=== PATIENT | female | born 1985 | race Caucasian/White ===

== ENCOUNTER 2018-08-06 03:34 | Emergency (ER) | payer OTHER ==
[~2018-08-06] VITALS: Ht 170.2 cm; Wt 56.0 kg
[2018-08-06] MEDS ORDERED: ketorolac trometh. 30mg/ml inj. IV ONE (04:30)
[2018-08-06] MEDS ORDERED: normal saline 1000ml 1,000 ML IV ONE (04:30)
[2018-08-06] MEDS ORDERED: ondansetron/PF 4mg/2ml inj IV ONE ×2 (04:30→13:45)
[2018-08-06 05:03] LABS: ALANINE AMINOTRANSFERASE 27 U/L (12-78); ALBUMIN 3.5 G/DL (3.4-5.0); ALKALINE PHOSPHATASE 40 IU/L (46-116); ANION GAP 7 (8-16); ASPARTATE AMINO TRANSFERASE 22 U/L (10-37); BILIRUBIN,TOTAL 0.3 MG/DL (0.1-1.0); BLOOD UREA NITROGEN 11 MG/DL (7-18); BUN/CREATININE RATIO 11.8 (6.6-38.0); CALCIUM 8.4 MG/DL (8.5-10.1); CHLORIDE 104 MMOL/L (99-107); CREATININE 0.93 MG/DL (0.40-0.90); GLUCOSE 132 MG/DL (70-104); LIPASE 146 U/L (73-393); POTASSIUM 3.7 MMOL/L (3.5-5.1); SODIUM 136 MMOL/L (135-145); TOTAL CARBON DIOXIDE 24.9 MMOL/L (24-32); TOTAL PROTEIN 6.9 G/DL (6.4-8.2); eGFR 71 ML/MIN
[2018-08-06 05:16] LABS: BASOPHILS % (AUTO) 0.6 % (0-1); EOSINOPHILS # (AUTO) 0.2 X10'3 (0-0.9); EOSINOPHILS % (AUTO) 2.3 % (0-6); HEMATOCRIT 34.3 % (35.0-45.0); HEMOGLOBIN 11.8 g/dl (12.0-16.0); LYMPHOCYTES # (AUTO) 2.7 X10'3 (1.1-4.8); LYMPHOCYTES % (AUTO) 33.4 % (21-51); MEAN CORPUSCULAR HEMOGLOBIN 31.9 PG (27.0-31.0); MEAN CORPUSCULAR HGB CONC 34.5 g/dL (33.0-36.5); MEAN CORPUSCULAR VOLUME 92.3 FL (78-98); MONOCYTES # (AUTO) 0.6 X10'3 (0-0.9); MONOCYTES % (AUTO) 7.4 % (2-12); NEUTROPHILS # (AUTO) 4.6 X10'3 (1.8-7.7); NEUTROPHILS % (AUTO) 56.3 % (42-75); PLATELET COUNT 227 X10'3 (140-440); RED BLOOD COUNT 3.71 X10'6 (4.20-5.60); RED CELL DISTRIBUTION WIDTH 13.2 % (11.5-14.5); WHITE BLOOD COUNT 8.1 X10'3 (4.5-11.0)
[2018-08-06] MEDS ORDERED: BISA-155 PO (05:39)
[2018-08-06] MEDS ORDERED: POLY119P2 PO (05:39)
--- NOTE | 2018-08-06 05:58 | NUR ---
Pt unable to urinate on her own. No fem kits [facility]. [facility] outstanding for UA.
--- NOTE | 2018-08-06 07:36 | NUR ---
Pt ambulated to bathroom without difficulty.
--- NOTE | 2018-08-06 07:45 | NUR ---
Pt still unable to void.
[2018-08-06] MEDS ORDERED: normal saline 1000ML IV soln IVB ONE ×2 (08:40→13:45)
--- NOTE | 2018-08-06 08:45 | NUR ---
Spoke to Dr. Lane regarding pt continued inability to void. He states he will order an additional NS bolus.
--- NOTE | 2018-08-06 10:18 | NUR ---
Pt ambulated to restroom unassisted with steady gait.
[2018-08-06 10:58] LABS: URINE HCG POSITIVE (NEG)
[2018-08-06 11:00] LABS: CLARITY,URINE SLIGHTLY CLOUDY (Clear); COLOR,URINE YELLOW (Yellow); GLUCOSE, URINE NEGATIVE (Neg); KETONES,URINE TRACE mg/dl (Neg); LEUKOCYTE ESTERASE ,URINE NEGATIVE (Neg); NITRITES, URINE NEGATIVE (Neg); OCCULT BLOOD,URINE NEGATIVE (Neg); PROTEIN,URINE TRACE mg/dl (Neg); UROBILINOGEN,URINE 0.2 E.U/dL (0.2-1.0)
[2018-08-06 11:05] LABS: UA COLLECTION TYPE CLN CATCH MIDSTREAM
[2018-08-06 11:06] LABS: BACTERIA,URINE FEW /HPF (Neg); MUCUS STRANDS MODERATE /LPF (Neg); RBC,URINE 0-2 /HPF (0-2); SQUAMOUS EPITHELIAL CELL,UR MODERATE /LPF (FEW); WBC,URINE 0-4 /HPF (0-4)
[2018-08-06] MEDS ORDERED: HYDROmorphone 1 mg/ml syringe IV ONE (13:45)
[2018-08-06 14:08] VITALS: BP 114/61
== END 2018-08-06 14:11 | disposition short-term general hospital (02) ==
LOC: ER 03:35
DX: O00.90 Unspecified ectopic pregnancy without intrauterine pregnancy (principal); O21.9 Vomiting of pregnancy, unspecified; Z79.899 Other long term (current) drug therapy; Z3A.01 Less than 8 weeks gestation of pregnancy
CPT/HCPCS: 36415; 76801; 80053; 81001; 81025; 83690; 84702; 85025; 96361; 96374; 96375; 96376; 99284; J1170; J1885; J2405; J7030